=== PATIENT | female | born 1965 | race American Indian/Alaskan Native ===

== ENCOUNTER 2018-08-13 13:34 | Outpatient (CLI) | payer OTHER ==
--- NOTE | 2018-08-13 20:20 | Magnetic Resonance Report ---
PROCEDURE: MR THORACIC SPINE WO CON HISTORY: M54.6 THORACIC SPINE PAIN FINDINGS: MRI of the thoracic spine was performed using sagittal T1, sagittal T2, sagittal inversion recovery, axial T1 and axial T2-weighted images. These images demonstrate that the conus medullaris lies at the level of L1 and appears unremarkable. There is metallic artifact in the intervertebral disc spaces of T4-5 and T6-7 which attest to prior p rocedures, likely partial disc replacements. At T4-5 there is a small central disc protrusion which does not result in canal stenosis or significa nt neural foraminal narrowing or nerve root impingement. At T2-T3 and T5-T6 there is mild loss of disc T2 signal intensity. There are no posterior disc abnorm alities. There is no evidence of central canal stenosis and significant neural foraminal narrowing or nerve ro ot impingement at any level in the thoracic spine. Cord signal is within normal limits. IMPRESSION: No evidence of canal stenosis, significant neural foraminal narrowing or nerve root impingement in th e thoracic spine This document is electronically signed by Desmond Villasenor MD., August 13 2018 08:18:13 PM ET
--- NOTE | 2018-08-14 02:29 | Magnetic Resonance Report ---
PROCEDURE: MR LUMBAR SPINE WO CON TECHNIQUE: Sagittal T1, T2 fat sat, STIR; axial T2 fat sat and T1 images were obtained lumbar spine. No contrast was administered. HISTORY: Low back pain, prior fusion. COMPARISONS: None available. FINDINGS: Spinal numbering: For the purposes of this examination 5, nonrib-bearing lumbar vertebral bodies are assumed. Surgical changes from previous posterior fusion and decompression from L4 through S1 consisting of ve rtical spinal rods and transpedicular screws. Probable interlocking bar at the L5 level posteriorly. Findings result in adjacent susceptibility artifact mildly limiting evaluation of the soft tissue str uctures in the bone marrow signal. Conus medullaris terminates at the L1-L2 level the distal spinal cord signal or morphology is normal. Level by level analysis as follows: T12-L1: No spinal canal or neural foraminal stenosis. L1-L2: No spinal canal or neural foraminal stenosis. L2-L3: No spinal canal or neural foraminal stenosis. L3-L4: No spinal canal or neural foraminal stenosis. There is mild bilateral facet degenerative gruber es. L4-L5: Surgical level. There is mild intervertebral disc height loss and disc desiccation. There is n o spinal canal or neural foraminal stenosis. L5-S1: Mild intervertebral disc height loss and desiccation. Mild facet degenerative changes. There i s no spinal canal stenosis. Mild caudal narrowing of bilateral neural foramen. Paravertebral soft tissues: There is fatty infiltration/atrophy in the lower paraspinal musculature. No focal fluid collection within the operative bed. Small scattered Tarlov's cyst. IMPRESSION: 1. Surgical changes from previous posterior fusion and decompression from L4 through S1. There is no evidence of residual/recurrent disc herniation at the L4-L5 or L5-S1 level. There is no narrowing of the spinal canal. 2. Mild articular facet degenerative changes at L3-L4 and L5-S1 result in mild caudal narrowing of th e L5 neural foramen. There is no high-grade stenosis. 3. The distal spinal cord signal morphology appears normal. This document is electronically signed by Benjamin Izquierdo DO., August 14 2018 02:27:26 AM ET
== END 2018-08-13 13:35 | disposition home or self-care (01) ==
LOC: MRI 13:34
PROVIDERS: ATTEND Orthopaedic Surgery
DX: M47.817 Spondylosis without myelopathy or radiculopathy, lumbosacral region (principal); M48.07 Spinal stenosis, lumbosacral region; M54.6 Pain in thoracic spine
CPT/HCPCS: 72146; 72148